=== PATIENT | female | born 2000 | race Hispanic/Latino ===

== ENCOUNTER 2023-03-19 19:53 | Emergency (ER) | payer OTHER ==
[~2023-03-19] VITALS: Ht 152.4 cm; Wt 61.2 kg
[2023-03-19 21:11] LABS: HCG,QUALITATIVE URINE POSITIVE (NEGATIVE)
[2023-03-19 21:12] LABS: ADD UA MICROSCOPIC YES; APPEARANCE,URINE CLEAR (CLEAR); BILIRUBIN,URINE NEGATIVE (NEGATIVE); COLOR,URINE COLORLESS (YELLOW); GLUCOSE, URINE (UA) 70 mg/dL (NEGATIVE); KETONES,URINE NEGATIVE (NEGATIVE); LEUKOCYTE ESTERASE ,URINE NEGATIVE Leu/uL (NEGATIVE); NITRATE,URINE NEGATIVE (NEGATIVE); OCCULT BLOOD,URINE NEGATIVE (NEGATIVE); PROTEIN,URINE NEGATIVE (NEGATIVE); UROBILINOGEN,URINE 0.2 mg/dL (0.2-1.0)
[2023-03-19 21:14] LABS: BACTERIA,URINE RARE /HPF (None Seen); RBC,URINE 0-1 /HPF (0-1); SQUAMOUS EPITHELIAL CELL,UR RARE /HPF (0-2); WBC,URINE 0-1 /HPF (0-1)
[2023-03-20] MEDS ORDERED: ACET-2247 PO (02:12)
[2023-03-20] MEDS ORDERED: MAG-55 PO (02:12)
[2023-03-20 02:19] VITALS: BP 124/64; PULSE 74; RESP 16; O2SAT 100
== END 2023-03-20 02:23 | disposition home or self-care (01) ==
LOC: EDH 19:57
DX: M79.602 Pain in left arm (principal); R07.89 Other chest pain
CPT/HCPCS: 81001; 81025; 84484; 93005